=== PATIENT | male | born 1950 | race Caucasian/White ===

== ENCOUNTER 2019-08-20 20:03 | Emergency (ER) | payer MEDICARE, BC ==
[2019-08-20] MEDS ORDERED: Diphtheria,Pertussis(Acell),Tetanus Vaccine 0.5 ML SDV IM ONE (20:16)
[2019-08-20] MEDS ORDERED: Lidocaine 1% 30 ML SDV INJECT ONE (20:16)
--- NOTE | 2019-08-20 20:18 | EDM.PDOC ---
ED HPI GENERAL MEDICAL PROBLEM - General Chief Complaint: Head Injury Stated Complaint: AMBULANCE Time Seen by Provider: 08/20/19 20:16 Source of Information: Reports: Patient, EMS History Limitations: Reports: No Limitations - History of Present Illness INITIAL COMMENTS - FREE TEXT/NARRATIVE: EMS arrived @ scene of pt sitting on ground stating he fell hit back of head, no vomiting en route. pt denies LOC states takes no Rx. - Related Data Allergies Allergy/AdvReac Type Severity Reaction Status Date / Time No Known Allergies Allergy Verified 08/20/19 20:16 Home Meds: Home Meds . [No Known Home Meds] 08/20/19 [History] ED ROS GENERAL - Review of Systems Review Of Systems: Comprehensive ROS is negative, except as noted in HPI. ED EXAM, HEAD INJURY - Physical Exam Exam: See Below Exam Limited By: No Limitations General Appearance: Alert, WD/WN, No Apparent Distress, Other (intox, coop) Head: Scalp Lacerations. No: Parikh's Sign, Raccoon Eyes Nexus Criteria: Evidence of Intoxication. No: Posterior, Midline Cervical Tenderness, Altered Level of Consciousness, Focal Neurological Deficit, Painful Distraction Injuries Eyes: Bilateral Eye: PERRL (pupils ER @ 4mm) Ears: Hearing Grossly Normal Throat/Mouth: Normal Voice, No Airway Compromise Neck: Non-Tender, Full Range of Motion Respiratory: No Respiratory Distress Cardiovascular: Regular Rate, Rhythm GI/Abdominal Exam: Soft, Non-Tender Neurologic: No Motor/Sensory Deficits, Alert, Oriented x 3, Other (intox coop) Skin: Normal Color, Warm/Dry - [place] Coma Score Best Eye Response (Vitor): (4) Open Spontaneously Best Verbal Response (Vitor): (5) Oriented Best Motor Response (Vitor): (6) Obeys Commands Vitor Total: 15 ED LACERATION/WOUND & LURDES PROC - Laceration/Wound Repair [place] Head Lac/wound length in cm: 6 (top of head) Appearance: Subcutaneous, Clean, Mildly Contaminated Anesthetic Type: Local Local Anesthesia - Lidocaine (Xylocaine): 1% Plain Local Anesthetic Volume: 5cc Skin Prep: Chlorhexidine (Hibiciens) Saline irrigation (cc's): 20 Exploration/Debridement/Repair: Wound Explored, In a Bloodless Field, Minimal Debridement, Foreign Material Removed, Other (gravel) Closed with: Sutures Suture Size: 3-0 Suture Type: Nylon, Interrupted Sterile Dressing Applied: None Tetanus Status Addressed: Yes Complications: No Course - Vital Signs Last Recorded V/S: Last Vital Signs Temp 36.4 C 08/20/19 20:16 Pulse 60 08/20/19 20:16 Resp 16 08/20/19 20:16 BP 121/75 08/20/19 20:16 Pulse Ox 98 08/20/19 20:16 - Orders/Labs/Meds Orders: Active Orders 24 hr Category Date Time Status Vaccines to be Administered [RC] PER UNIT ROUTINE Care 08/20/19 20:16 Active Meds: Medications Discontinued Medications Generic Name Dose Route Start Last Admin Trade Name Frebenito PRN Reason Stop Dose Admin Diphtheria/Tetanus/Acell Pertussis 0.5 ml 08/20/19 20:16 08/20/19 20:37 Adacel IM 08/20/19 20:17 0.5 ml .ONCE ONE Administration Lidocaine HCl 30 ml 08/20/19 20:16 08/20/19 20:38 Xylocaine-Mpf 1% INJECT 08/20/19 20:17 30 ml ONETIME ONE Administration - Re-Assessments/Exams Free Text/Narrative Re-Assessment/Exam: 08/20/19 21:51 results discussed with pt who feels good and wants to go home. Departure - Departure Time of Disposition: 21:52 Disposition: Home, Self-Care 01 Condition: Good Clinical Impression: Concussion with no loss of consciousness Scalp laceration Qualifiers: Encounter type: initial encounter Qualified Code(s): S01.01XA - Laceration without foreign body of scalp, initial encounter Alcohol intoxication Qualifiers: Complication of substance-induced condition: uncomplicated Qualified Code(s): F10.920 - Alcohol use, unspecified with intoxication, uncomplicated - Discharge Information Instructions: Head Injury, Adult, [id number] Forms: ED Department Discharge Additional Instructions: 1) don't drink alcohol next 48 hours 2) keep wound clean and dry 3) suture removal 10 days 4) recheck if there is any change or concern Sepsis Event Note - Focused Exam Vital Signs: Vital Signs Temp Pulse Resp BP Pulse Ox 08/20/19 20:16 36.4 C 60 16 121/75 98 Date Exam was Performed: 08/20/19 Time Exam was Performed: 21:51 - My Orders Last 24 Hours: My Active Orders 05/31/20 20:16 Vaccines to be Administered [RC] PER UNIT ROUTINE - Assessment/Plan Last 24 Hours: My Active Orders 08/20/19 20:16 Vaccines to be Administered [RC] PER UNIT ROUTINE
--- NOTE | 2019-08-20 21:33 | CT ---
PROCEDURE INFORMATION: Exam: CT Cervical Spine Without Contrast Exam date and time: 08/20/2019 9:10 PM Age: 69 years old Clinical indication: Other: Fall; Additional info: Fall, head injury TECHNIQUE: Imaging protocol: Computed tomography images of the cervical spine without contrast. Radiation optimization: All CT scans at this facility use at least one of these dose optimization techniques: automated exposure control; mA and/or kV adjustment per patient size (includes targeted exams where dose is matched to clinical indication); or iterative reconstruction. COMPARISON: No relevant prior studies available. FINDINGS: Vertebrae: There is moderate ventral and mild dorsal marginal osteophyte formation at multiple levels. The facet joints demonstrate moderate degenerative hypertrophy and sclerosis. There is no evidence of acute fracture. Discs/Spinal canal/Neural foramina: There is marked narrowing of the C3-C4 through C7-T1 intervertebral discs. There is marked narrowing of the right C3-C4 neural foramen due to hypertrophy of the uncus. There is moderate narrowing of the left C5-C6 neural foramen due to hypertrophy of the uncus. There is mild to marked narrowing of the left C6-C7 neural foramen due to hypertrophy of the uncus. Soft tissues: The extraspinous soft tissues are normal. Lungs: The visualized portions of the lung apices are normal. IMPRESSION: Degenerative disc and facet disease without acute bony abnormality.
--- NOTE | 2019-08-20 21:34 | CT ---
PROCEDURE INFORMATION: Exam: CT Head Without Contrast Exam date and time: 08/20/2019 9:10 PM Age: 69 years old Clinical indication: Other: Fall; Additional info: Fall, head injury TECHNIQUE: Imaging protocol: Computed tomography of the head without contrast. Radiation optimization: All CT scans at this facility use at least one of these dose optimization techniques: automated exposure control; mA and/or kV adjustment per patient size (includes targeted exams where dose is matched to clinical indication); or iterative reconstruction. COMPARISON: No relevant prior studies available. FINDINGS: Brain: There is no evidence of acute hemorrhage within the brain parenchyma or the subarachnoid space. No abnormal attenuation is noted within the brain parenchyma. Ventricles: The ventricular system is normal in size and distribution. There is no significant ventricular effacement or midline shift. Bones/joints: The skull is normal. Sinuses: The visualized portions of the sinuses are normal. Mastoid air cells: The mastoid sinuses are normal. Orbits: The orbits are normal. Soft tissues: There is a large scalp hematoma in the posterior parietal occipital region. IMPRESSION: 1. Scalp hematoma on the left. 2. No acute intracranial process.
== END 2019-08-20 22:05 | disposition home or self-care (01) ==
LOC: DL.ED 20:03
DX: S06.0X0A Concussion without loss of consciousness, initial encounter (principal); Z23 Encounter for immunization; F10.120 Alcohol abuse with intoxication, uncomplicated; W22.8XXA Striking against or struck by other objects, initial encounter
CPT/HCPCS: 12032; 70450; 72125; 90471; 90715; 99284; J2001; 12002; 99282